=== PATIENT | female | born 1975 | race Caucasian/White ===

== ENCOUNTER 2021-05-28 06:13 | Day surgery (SDC) | payer OTHER, SELFPAY ==
[~2021-05-28] VITALS: Ht 152.4 cm; Wt 68.0 kg
[2021-05-28] MEDS ORDERED: fentaNYL citrate 0.05 MG/ML VIAL ONE (07:33)
[2021-05-28] MEDS ORDERED: LIDOCAINE 2% 100 MG/5 ML UJET TP ONE (07:33)
[2021-05-28] MEDS ORDERED: MIDAZOLAM 5 MG/5 ML VIAL ONE (07:33)
[2021-05-28] MEDS ORDERED: diphenhydrAMINE 50 MG/ML VIAL ONE (07:33)
[2021-05-28] MEDS ORDERED: diphenhydrAMINE 50 MG/ML VIAL IVP ONE (09:30)
[2021-05-28] MEDS ORDERED: fentaNYL citrate 0.05 MG/ML VIAL IVP ONE (09:30)
[2021-05-28] MEDS ORDERED: MIDAZOLAM 2 MG/2 ML VIAL IVP ONE (09:30)
== END 2021-05-28 08:44 | disposition home or self-care (01) ==
LOC: MMU 06:13 → MOR 06:13
PROVIDERS: ATTEND Internal Medicine Gastroenterology
DX: R10.9 Unspecified abdominal pain (principal); K57.30 Diverticulosis of large intestine without perforation or abscess without bleeding; K57.33 Diverticulitis of large intestine without perforation or abscess with bleeding; Z79.899 Other long term (current) drug therapy; Z20.822 Contact with and (suspected) exposure to COVID-19
CPT/HCPCS: 45378; J1200; J2250; J3010; U0003